=== PATIENT | male | born 1945 | race Caucasian/White ===

== ENCOUNTER → 2021-09-24 | Outpatient (CLI) | payer OTHER ==
[~2021-09-24] MED LIST: Dyazide 37.5-21 EACH PO; Inderal40 MG PO; PROAIR RESPICL90 MCG INH; Pravachol40 MG PO
== END | disposition home or self-care (01) ==
LOC: LAB SHORT 12:32
DX: Z01.812 Encounter for preprocedural laboratory examination (principal); C44.229 Squamous cell carcinoma of skin of left ear and external auricular canal
CPT/HCPCS: 88305

== ENCOUNTER → 2023-05-18 | Outpatient (CLI) | payer OTHER | LOC: LAB 12:00 → PLD 12:00 → LAB SHORT 12:00 | DX: L72.0 Epidermal cyst (principal) | CPT/HCPCS: 88304 ==

== ENCOUNTER → 2023-08-10 | Outpatient (CLI) | payer OTHER ==
[2023-08-10 10:46] LABS: Source, Urine Voided
[2023-08-10 12:06] LABS: Bacteria Rare /hpf; Granular Casts 0-2 /lpf (0); Hyaline Casts 0-2 /lpf (0-2); Squamous Epithelial Cells Rare /hpf (Few); White Blood Cells, Urine 0-2 /hpf (0-5)
== END | disposition home or self-care (01) ==
LOC: LAB SHORT 08:10 → LAB 08:10
PROVIDERS: Family Medicine
DX: R31.0 Gross hematuria (principal)
CPT/HCPCS: 81015; 87086

== ENCOUNTER 2024-03-07 19:10 | Observation (INO) | payer OTHER ==
[~2024-03-07] VITALS: Ht 188 cm; Wt 118.0 kg
[~2024-03-07 19:10] MED LIST changes: +ALBUTEROL SULFATE HF; +CHOLESTYRAMI239.4 G5 PO; +DIPATR PO; +FINA5 PO; +LOSA50 PO; +POTA10T PO; +Potassium Chlo20 ME1 PO; +SILDENAFIL CIT100 MG PO; +VISBIOME 112.51 EACH; +Vancocin HCl125 MG
[2024-03-07 19:35] LABS: BASOPHILS ABSOLUTE AUTO 0.04 K/mm3 (0.00-0.23); BASOPHILS PERCENT AUTO 1 % (0-2); EOSINOPHILS ABSOLUTE AUTO 0.26 K/mm3 (0.00-0.68); EOSINOPHILS PERCENT AUTO 3 % (0-6); Hematocrit 38.5 % (37.0-53.0); IMMATURE GRAN ABSOLUTE AUTO 0.04 K/mm3 (0.00-0.10); IMMATURE GRAN PERCENT AUTO 1 % (0-1); LYMPHOCYTES ABSOLUTE AUTO 0.65 K/mm3 (0.84-5.20); LYMPHOCYTES PERCENT AUTO 8 % (21-46); MONOCYTES ABSOLUTE AUTO 0.91 K/mm3 (0.16-1.47); MONOCYTES PERCENT AUTO 11 % (4-13); Mean Corpuscular HGB 33.1 pg (26.0-34.0); Mean Corpuscular HGB Conc 33.8 g/dL (31.5-36.5); Mean Corpuscular Volume 98 fL (80-100); Mean Platelet Volume 10.7 fL (9.1-12.4); NEUTROPHILS ABSOLUTE AUTO 6.14 K/mm3 (1.96-9.15); NEUTROPHILS PERCENT AUTO 76 % (41-73); Platelet Count 292 K/mm3 (150-400); RDW Coefficient Variation 13.2 % (11.7-14.2); RDW Standard Deviation 47.2 fL (35.1-46.3); Red Blood Cell Count 3.93 M/mm3 (4.30-5.90); White Blood Cell Count 8.04 K/mm3 (4.00-11.30)
[2024-03-07 19:56] LABS: Albumin, Blood 3.2 g/dL (3.4-5.0); Albumin/Globulin Ratio 0.9 (0.8-1.8); Bilirubin, Total 0.4 mg/dL (0.1-1.0); Bun/Creatinine Ratio 17.7 (12.0-20.0); Calcium, Blood 9.4 mg/dL (8.5-10.1); Creatinine, Blood 2.48 mg/dL (0.60-1.20); Globulin, Blood 3.5 g/dL (2.2-4.0); Potassium, Blood 4.2 mmol/L (3.5-5.5); Total Protein, Blood 6.7 g/dL (6.4-8.2)
[2024-03-07] MEDS ORDERED: Ondansetron HCl 2 MG / ML 2ML Vial IV PRN (21:15)
[2024-03-07] MEDS ORDERED: Albuterol 2.5 MG/3 ML VIAL INH PRN (21:20)
[2024-03-07] MEDS ORDERED: Acetaminophen 325 MG TABLET PO PRN (21:20)
[2024-03-07] MEDS ORDERED: Lactated Ringer's 1,000 ML IV SCH (21:20)
[2024-03-07] MEDS ORDERED: Aspirin 81 MG Chew PO ONE (21:20)
[2024-03-07] MEDS ORDERED: NS 1,000 ML IV ONE ×2 (21:21→22:00)
[2024-03-07 22:49] VITALS: BP 131/94
[2024-03-08] MEDS ORDERED: Melatonin 5 MG Tablet PO SCH (01:25)
[2024-03-08 04:31] VITALS: BP 145/84
--- NOTE | 2024-03-08 05:26 | NUR ---
END OF SHIFT SUMMARY NEW ADMIT FOR TIA. PT REPORTS NUMB/TING TO RUE CONTINUES BUT IMPROVED. GRASPS EQUAL. RLE STILL MILD NUMBNESS BUT PT ABLE TO AMBULATE AT BASELINE. HX COPD, NOT ON O2. WEARS CPAP AT NIGHT BUT DID NOT BRING IN. REFUSED TO WEAR HOSPITAL CPAP BUT AGREEABLE TO CONT PULSE OX. SOB WITH EXERTION, PT REPORTS ALSO BASELINE. UP TO BSC INDEPENDENTLY. C/O CONTINUED LOOSE STOOLS FOR THE LAST 2 MONTHS. ACCORDING TO PT, PREVIOUS DX OF CDIFF BUT NOW NEGATIVE IN JANUARY, RESULTS IN CHART. PT STATES HAS ECOLI AND SALMONELLA IN STOOL. NSR ON TELE. ON IVF.
[2024-03-08 06:36] LABS: Hematocrit 34.6 % (37.0-53.0); Hemoglobin 11.5 g/dL (13.5-17.5); Mean Corpuscular HGB 33.4 pg (26.0-34.0); Mean Corpuscular HGB Conc 33.2 g/dL (31.5-36.5); Mean Corpuscular Volume 101 fL (80-100); Platelet Count 265 K/mm3 (150-400); RDW Coefficient Variation 13.4 % (11.7-14.2); RDW Standard Deviation 49.6 fL (35.1-46.3); Red Blood Cell Count 3.44 M/mm3 (4.30-5.90)
[2024-03-08 06:58] LABS: Anion Gap 2 mmol/L (3-11); Blood Urea Nitrogen 38 mg/dL (8-24); Bun/Creatinine Ratio 15.5 (12.0-20.0); CHOL/HDL RATIO 3.4; CO2, Blood 19 mmol/L (21-32); Calcium, Blood 8.5 mg/dL (8.5-10.1); Chloride, Blood 129 mmol/L (98-108); Cholesterol 93 mg/dL (50-200); Creatinine, Blood 2.45 mg/dL (0.60-1.20); Glomerular Filtration Rate 27 (60-); Glucose, Blood 107 mg/dL (70-99); HDL Cholesterol 27 mg/dL (>39); Low Density Lipoprotein Chol 27 mg/dL (0-110); Magnesium, Blood 1.6 mg/dL (1.6-2.4); Potassium, Blood 3.9 mmol/L (3.5-5.5); Sodium, Blood 146 mmol/L (136-145); Triglycerides 194 mg/dL (30-160); Very Low Density Lipoprot Chol 38 mg/dL (6-32)
[2024-03-08 07:13] VITALS: BP 148/88
[2024-03-08] MEDS ORDERED: Propranolol HCL 20 MG TAB PO SCH (07:30)
[2024-03-08] MEDS ORDERED: Finasteride 5 MG Tab PO SCH (09:00)
[2024-03-08] MEDS ORDERED: Aspirin 81 MG Chew PO SCH (09:00)
[2024-03-08] MEDS ORDERED: Atorvastatin 40 MG Tab PO SCH ×2 (09:00→21:00)
[2024-03-08] MEDS ORDERED: Losartan Potassium 50 MG Tab PO SCH ×2 (09:00→21:00)
[2024-03-08] MEDS ORDERED: Heparin Sodium,Porcine 5,000 UNIT/0.5 ML SDV SC SCH (09:00)
--- NOTE | 2024-03-08 09:00 | NUR ---
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
[2024-03-08 15:02] VITALS: BP 132/80
[2024-03-08] MEDS ORDERED: ASPI81CH PO (16:17)
[2024-03-08] MEDS ORDERED: ATOR40TA PO (16:18)
[2024-03-08] MEDS ORDERED: FINA5 PO (16:18)
[2024-03-08] MEDS ORDERED: LOSA50 PO ×2 (16:18)
[2024-03-08] MEDS ORDERED: AMLO5 PO ×2 (16:19)
[2024-03-08] MEDS ORDERED: CLOP75 PO (16:19)
[2024-03-08] MEDS ORDERED: Inderal40 MG PO (16:19)
[2024-03-08] MEDS ORDERED: Chantix1 MG PO (16:20)
[2024-03-08] MEDS ORDERED: MAXZIDE-25 PO ×2 (16:22)
--- NOTE | 2024-03-08 16:41 | NUR ---
pt had echo done, gauri patch placed, discharge instructions give, he verbalized understanding, piv removed intact, new meds faxed to [facility], left via wheelchair with line construction supervisor in attendence with all his belongings.
== END 2024-03-08 16:53 | disposition home or self-care (01) ==
LOC: ER 19:10 → MEDS 19:11
PROVIDERS: Nurse Practitioner Acute Care; Student in an Organized Health Care Education/Training Program; ADMIT Student in an Organized Health Care Education/Training Program
DX: I63.9 Cerebral infarction, unspecified (principal); I12.9 Hypertensive chronic kidney disease with stage 1 through stage 4 chronic kidney disease, or unspecified chronic kidney disease; N18.32 Chronic kidney disease, stage 3b; J44.9 Chronic obstructive pulmonary disease, unspecified; N40.0 Benign prostatic hyperplasia without lower urinary tract symptoms; G47.33 Obstructive sleep apnea (adult) (pediatric); Z88.0 Allergy status to penicillin; Z79.899 Other long term (current) drug therapy
CPT/HCPCS: 36415; 70450; 70496; 70498; 70551; 80048; 80053; 80061; 83036; 83735; 85025; 85027; 93005; 93010; 93246; 93306; 94762; 96360-59; 97161; 97530; 99285-25; A9270; G0378; J7030; J7120; Q9967

== ENCOUNTER 2024-03-15 16:23 | Inpatient (IN) | payer OTHER ==
[~2024-03-15] VITALS: Ht 188 cm; Wt 118.0 kg
[~2024-03-15 16:23] MED LIST changes: +AMLO5 PO; +ASPI81CH PO; +ATOR40TA PO; +CLOP75 PO; +Chantix1 MG PO; +MAXZIDE-25 PO; +NS 1,000 ML IV SCH
[2024-03-15 19:41] LABS: BASOPHILS ABSOLUTE AUTO 0.04 K/mm3 (0.00-0.23); BASOPHILS PERCENT AUTO 0 % (0-2); EOSINOPHILS ABSOLUTE AUTO 0.08 K/mm3 (0.00-0.68); EOSINOPHILS PERCENT AUTO 1 % (0-6); Hemoglobin 11.8 g/dL (13.5-17.5); IMMATURE GRAN ABSOLUTE AUTO 0.04 K/mm3 (0.00-0.10); IMMATURE GRAN PERCENT AUTO 0 % (0-1); LYMPHOCYTES ABSOLUTE AUTO 0.71 K/mm3 (0.84-5.20); LYMPHOCYTES PERCENT AUTO 6 % (21-46); MONOCYTES PERCENT AUTO 16 % (4-13); Mean Corpuscular HGB 32.7 pg (26.0-34.0); Mean Corpuscular HGB Conc 32.8 g/dL (31.5-36.5); Mean Corpuscular Volume 100 fL (80-100); Mean Platelet Volume 10.8 fL (9.1-12.4); NEUTROPHILS ABSOLUTE AUTO 9.31 K/mm3 (1.96-9.15); NEUTROPHILS PERCENT AUTO 77 % (41-73); Platelet Count 352 K/mm3 (150-400); RDW Coefficient Variation 13.4 % (11.7-14.2); RDW Standard Deviation 49.2 fL (35.1-46.3); Red Blood Cell Count 3.61 M/mm3 (4.30-5.90); White Blood Cell Count 12.08 K/mm3 (4.00-11.30)
[2024-03-15 20:00] LABS: Albumin, Blood 2.6 g/dL (3.4-5.0); Albumin/Globulin Ratio 0.7 (0.8-1.8); Bilirubin, Total 0.7 mg/dL (0.1-1.0); Bun/Creatinine Ratio 11.6 (12.0-20.0); Calcium, Blood 8.9 mg/dL (8.5-10.1); Creatinine, Blood 4.93 mg/dL (0.60-1.20); Globulin, Blood 3.9 g/dL (2.2-4.0); Potassium, Blood 4.7 mmol/L (3.5-5.5); Total Protein, Blood 6.5 g/dL (6.4-8.2)
[2024-03-15] MEDS ORDERED: Lactated Ringer's 1,000 ML IV ONE ×4 (20:20→21:32)
[2024-03-15 22:58] LABS: Calcium, Blood 8.8 mg/dL (8.5-10.1); Creatinine, Blood 4.5 mg/dL (0.60-1.20); Potassium, Blood 4.6 mmol/L (3.5-5.5)
[2024-03-15] MEDS ORDERED: Ondansetron HCl 2 MG / ML 2ML Vial IV PRN ×2 (23:25→23:50)
[2024-03-15] MEDS ORDERED: Acetaminophen 325 MG TABLET PO PRN (23:30)
[2024-03-15] MEDS ORDERED: Magnesium Hydroxide Conc 10 ML UDC PO PRN (23:30)
[2024-03-16 00:35] LABS: Phosphorus, Blood 3.7 mg/dL (2.5-4.9)
--- NOTE | 2024-03-16 01:02 | NUR ---
NEW ADMIT. PATIENT ADMITTED TO ROOM 352 FROM THE ER. PATIENT ARRIVED TO ROOM IN WHEELCHAIR WITH ONE PERSON ASSIST. PATIENT ABLE TO SELF TRANSFER SELF FROM CHAIR TO BED. PATIENT ARRIVED WITH 1 PATIENTS BELONGING BAG AND ONE PERSON BAG. THIS RN TO ASSUME CARE.
[2024-03-16 01:07] VITALS: BP 135/79
[2024-03-16] MEDS ORDERED: Ipratropium/Albuterol SulF 2.5-0.5MG/3 ML Amp INH ONE (02:15)
[2024-03-16] MEDS ORDERED: Ipratropium/Albuterol SulF 2.5-0.5MG/3 ML Amp INH PRN (02:20)
[2024-03-16 03:32] VITALS: BP 138/78
--- NOTE | 2024-03-16 05:05 | NUR ---
SHIFT SUMMARY. PATIENT IS A&OX4. PATIENT IS SBA TO THE BATHROOM. PATIENT ON TELE WITH LEADS IN PLACE. PATIENT PLEASANT AND CAAOPERATIVE WITH CARE. PATIENT CALLS APPROPRIATELY AND IS ABLE TO MAKE HIS NEEDS KNOWN. PATIENT SLEPT OFF AND ON T/O NIGHT. PATIENT SITTING ON BEDSIDE WATCHING TV THIS AM. BED IS LOCKED IN THE LOWEST POSITION WITH CALL LIGHT IN REACH. CARE IS ONGOING.
[2024-03-16 06:06] LABS: BASOPHILS ABSOLUTE AUTO 0.04 K/mm3 (0.00-0.23); BASOPHILS PERCENT AUTO 0 % (0-2); EOSINOPHILS ABSOLUTE AUTO 0.11 K/mm3 (0.00-0.68); EOSINOPHILS PERCENT AUTO 1 % (0-6); Hematocrit 34.5 % (37.0-53.0); Hemoglobin 11.3 g/dL (13.5-17.5); IMMATURE GRAN ABSOLUTE AUTO 0.05 K/mm3 (0.00-0.10); IMMATURE GRAN PERCENT AUTO 1 % (0-1); LYMPHOCYTES ABSOLUTE AUTO 0.86 K/mm3 (0.84-5.20); LYMPHOCYTES PERCENT AUTO 8 % (21-46); MONOCYTES ABSOLUTE AUTO 1.65 K/mm3 (0.16-1.47); MONOCYTES PERCENT AUTO 16 % (4-13); Mean Corpuscular HGB 32.4 pg (26.0-34.0); Mean Corpuscular HGB Conc 32.8 g/dL (31.5-36.5); Mean Corpuscular Volume 99 fL (80-100); Mean Platelet Volume 11.1 fL (9.1-12.4); NEUTROPHILS ABSOLUTE AUTO 7.96 K/mm3 (1.96-9.15); NEUTROPHILS PERCENT AUTO 75 % (41-73); Platelet Count 333 K/mm3 (150-400); RDW Coefficient Variation 13.4 % (11.7-14.2); RDW Standard Deviation 48.9 fL (35.1-46.3); Red Blood Cell Count 3.49 M/mm3 (4.30-5.90); White Blood Cell Count 10.67 K/mm3 (4.00-11.30)
[2024-03-16 06:27] LABS: Albumin, Blood 2.4 g/dL (3.4-5.0); Anion Gap 7 mmol/L (3-11); Blood Urea Nitrogen 58 mg/dL (8-24); Bun/Creatinine Ratio 12.1 (12.0-20.0); CO2, Blood 21 mmol/L (21-32); Calcium, Blood 8.5 mg/dL (8.5-10.1); Chloride, Blood 116 mmol/L (98-108); Creatinine, Blood 4.81 mg/dL (0.60-1.20); Glomerular Filtration Rate 12 (60-); Glucose, Blood 107 mg/dL (70-99); Phosphorus, Blood 3.4 mg/dL (2.5-4.9); Potassium, Blood 4.3 mmol/L (3.5-5.5); Sodium, Blood 140 mmol/L (136-145)
[2024-03-16 07:12] VITALS: BP 141/87
[2024-03-16 08:52] LABS: Source, Urine Clean Catch
[2024-03-16] MEDS ORDERED: Enoxaparin 30 MG/0.3 ML SYR SC SCH (09:00)
[2024-03-16] MEDS ORDERED: Heparin Sodium,Porcine 5,000 UNIT/0.5 ML SDV SC SCH (09:00)
[2024-03-16 09:37] LABS: Bilirubin, Urine Neg (Neg); Blood, Urine 1+ (Neg); Glucose Qualitative, Urine Neg (Neg); Ketones, Urine Neg (Neg); Leukocyte Esterase, Urine Neg (Neg); Nitrite, Urine Neg (Neg); Protein, Urine 2+ (Neg); Urobilinogen, Urine NORM (Normal)
[2024-03-16 09:44] LABS: Appearance, Urine Hazy (Clear); Color, Urine Yellow (P-Yellow)
[2024-03-16 09:47] LABS: Red Blood Cells, Urine 0-2 /hpf (0-2); Squamous Epithelial Cells Rare /hpf (Few); White Blood Cells, Urine 0-2 /hpf (0-5)
[2024-03-16 09:48] LABS: Amorphous Light (0-Heavy); Bacteria Rare /hpf; Granular Casts 0-2 /lpf (0); Uric Acid Crystals Many /hpf
[2024-03-16] MEDS ORDERED: NS 1,000 ML IV SCH (12:45)
[2024-03-16] MEDS ORDERED: Propranolol HCL 20 MG TAB PO SCH (14:00)
[2024-03-16 14:37] VITALS: BP 160/87
[2024-03-16 20:10] VITALS: BP 152/87
[2024-03-16] MEDS ORDERED: Atorvastatin 40 MG Tab PO SCH (21:00)
[2024-03-17 03:05] VITALS: BP 151/80
[2024-03-17 06:29] LABS: BASOPHILS ABSOLUTE AUTO 0.05 K/mm3 (0.00-0.23); BASOPHILS PERCENT AUTO 0 % (0-2); EOSINOPHILS ABSOLUTE AUTO 0.14 K/mm3 (0.00-0.68); EOSINOPHILS PERCENT AUTO 1 % (0-6); Hematocrit 34.9 % (37.0-53.0); Hemoglobin 11.6 g/dL (13.5-17.5); IMMATURE GRAN ABSOLUTE AUTO 0.07 K/mm3 (0.00-0.10); IMMATURE GRAN PERCENT AUTO 1 % (0-1); LYMPHOCYTES ABSOLUTE AUTO 0.92 K/mm3 (0.84-5.20); LYMPHOCYTES PERCENT AUTO 8 % (21-46); MONOCYTES ABSOLUTE AUTO 1.79 K/mm3 (0.16-1.47); MONOCYTES PERCENT AUTO 15 % (4-13); Mean Corpuscular HGB 32.7 pg (26.0-34.0); Mean Corpuscular HGB Conc 33.2 g/dL (31.5-36.5); Mean Corpuscular Volume 98 fL (80-100); Mean Platelet Volume 11.2 fL (9.1-12.4); NEUTROPHILS ABSOLUTE AUTO 8.67 K/mm3 (1.96-9.15); NEUTROPHILS PERCENT AUTO 75 % (41-73); Platelet Count 383 K/mm3 (150-400); RDW Coefficient Variation 13.4 % (11.7-14.2); RDW Standard Deviation 47.8 fL (35.1-46.3); Red Blood Cell Count 3.55 M/mm3 (4.30-5.90); White Blood Cell Count 11.64 K/mm3 (4.00-11.30)
--- NOTE | 2024-03-17 06:50 | NUR ---
END OF SHIFT SUMMARY PT A&OX4. SOB ON EXERTION AT BASELINE, NOT ON O2. AGREEABLE TO WEARING CPAP, ONLY WORE FOR AROUND 2 HOURS. REMAINS ON IVF. VOIDING IN URINAL. BLADDER SCAN COMPLETE X1 PER ORDER, 106ML PVR. PT HAD LARGE BM THIS AM, SOME INCONTINENCE TO DUE DIFFICULTY GETTING TO BATHROOM IN TIME.
[2024-03-17 06:53] LABS: Alanine Aminotransfer (ALT/SGP 13 U/L (12-78); Albumin, Blood 2.5 g/dL (3.4-5.0); Albumin/Globulin Ratio 0.6 (0.8-1.8); Alk Phos 106 U/L (50-136); Anion Gap 9 mmol/L (3-11); Aspartate Aminotrans (AST/SGOT 13 U/L (12-37); Bilirubin, Total 0.5 mg/dL (0.1-1.0); Blood Urea Nitrogen 52 mg/dL (8-24); Bun/Creatinine Ratio 12.7 (12.0-20.0); CO2, Blood 19 mmol/L (21-32); Calcium, Blood 9.4 mg/dL (8.5-10.1); Chloride, Blood 120 mmol/L (98-108); Creatinine, Blood 4.09 mg/dL (0.60-1.20); Glomerular Filtration Rate 14 (60-); Glucose, Blood 107 mg/dL (70-99); Phosphorus, Blood 3.6 mg/dL (2.5-4.9); Potassium, Blood 4.7 mmol/L (3.5-5.5); Sodium, Blood 143 mmol/L (136-145); Total Protein, Blood 6.5 g/dL (6.4-8.2)
[2024-03-17 07:32] VITALS: BP 145/77
[2024-03-17] MEDS ORDERED: NS 1,000 ML IV SCH (08:15)
[2024-03-17] MEDS ORDERED: Aspirin 81 MG Chew PO SCH (09:00)
[2024-03-17] MEDS ORDERED: Finasteride 5 MG Tab PO SCH (09:00)
[2024-03-17] MEDS ORDERED: Bumetanide 1 MG Tab PO SCH (09:00)
[2024-03-17] MEDS ORDERED: AmLODIPine Besylate 5 MG Tab PO SCH (09:00)
[2024-03-17] MEDS ORDERED: Sodium Bicarbonate 650 MG Tab PO SCH (09:00)
[2024-03-17] MEDS ORDERED: Clopidogrel Bisulfate 75 MG Tab PO SCH (09:00)
[2024-03-17 15:19] VITALS: BP 136/80
[2024-03-17 19:00] VITALS: BP 162/92
--- NOTE | 2024-03-17 19:33 | NUR ---
report received, pt sitting up in bed anxious to go home but MD is wanting him to stay for observation. new orders were imputted. pt has had a difficult time urinating in the urinal so the floor has been needing to be mopped. possible unaccurate 24 hour urine collection. enc pt to continue collection. new iv started to right fa. pt so far independant
--- NOTE | 2024-03-17 20:47 | NUR ---
NOTIFIED JEREMIAH BOWERS THAT PT REFUSING IVF. ALSO NOTIFIED OF PT HR RUNNING 45-77 PER TELE. ORDERS RECD FOR HOLD PARAMATERS FOR PROPRANOLOL, UPDATED EMAR.
--- NOTE | 2024-03-18 00:45 | NUR ---
[employer] REPORTS SB 38 FOR A FEW SECONDS AND BACK UP TO HR 45-51. PATIENT AWOKE WHEN ENTERING ROOM. WCTM.
[2024-03-18 03:02] VITALS: BP 148/87
[2024-03-18 05:53] LABS: BASOPHILS ABSOLUTE AUTO 0.05 K/mm3 (0.00-0.23); BASOPHILS PERCENT AUTO 1 % (0-2); EOSINOPHILS ABSOLUTE AUTO 0.24 K/mm3 (0.00-0.68); EOSINOPHILS PERCENT AUTO 3 % (0-6); Hematocrit 31.7 % (37.0-53.0); Hemoglobin 10.3 g/dL (13.5-17.5); IMMATURE GRAN ABSOLUTE AUTO 0.04 K/mm3 (0.00-0.10); IMMATURE GRAN PERCENT AUTO 1 % (0-1); LYMPHOCYTES ABSOLUTE AUTO 0.89 K/mm3 (0.84-5.20); LYMPHOCYTES PERCENT AUTO 11 % (21-46); MONOCYTES ABSOLUTE AUTO 1.35 K/mm3 (0.16-1.47); MONOCYTES PERCENT AUTO 17 % (4-13); Mean Corpuscular HGB 32.7 pg (26.0-34.0); Mean Corpuscular HGB Conc 32.5 g/dL (31.5-36.5); Mean Corpuscular Volume 101 fL (80-100); Mean Platelet Volume 11.1 fL (9.1-12.4); NEUTROPHILS ABSOLUTE AUTO 5.56 K/mm3 (1.96-9.15); NEUTROPHILS PERCENT AUTO 68 % (41-73); Platelet Count 327 K/mm3 (150-400); RDW Coefficient Variation 13.4 % (11.7-14.2); RDW Standard Deviation 49.4 fL (35.1-46.3); Red Blood Cell Count 3.15 M/mm3 (4.30-5.90); White Blood Cell Count 8.13 K/mm3 (4.00-11.30)
--- NOTE | 2024-03-18 05:59 | NUR ---
END OF SHIFT SUMMARY PT A&OX4. PT FREQUENTLY AWAKE DURING NIGHT, ASKING FOR SNACKS, AMBULATING IN [place], STATING UNABLE TO SLEEP/RESTLESS BUT DECLINED INTERVENTION. PT C/O WAKING UP AT TIMES THINKING HE WAS AT HOME AND STARTING TO "WALK TO THE KITCHEN" BUT QUICKLY REALIZING HE WAS IN THE HOSPITAL ONCE IN THE [place]. PT SOB WITH EXERTION, O2 SAT 92 ON RA. DECLINED O2 OR CPAP. CONTINUES WITH 24 HOUR URINE COLLECTION, NO EPISODES OF INCONTINENCE. HR LOW OF 37 BRIEFLY PER TUBING MILL OPERATOR. PT SLEEPING AND ASYMPTOMATIC, STATING "THATS BEEN THAT WAY ALL MY LIFE."
[2024-03-18 06:26] LABS: Albumin, Blood 2.3 g/dL (3.4-5.0); Anion Gap 7 mmol/L (3-11); Blood Urea Nitrogen 49 mg/dL (8-24); Bun/Creatinine Ratio 15.1 (12.0-20.0); CO2, Blood 23 mmol/L (21-32); Calcium, Blood 9.1 mg/dL (8.5-10.1); Chloride, Blood 118 mmol/L (98-108); Creatinine, Blood 3.24 mg/dL (0.60-1.20); Glomerular Filtration Rate 19 (60-); Glucose, Blood 107 mg/dL (70-99); Magnesium, Blood 1.9 mg/dL (1.6-2.4); Phosphorus, Blood 3.6 mg/dL (2.5-4.9); Potassium, Blood 4.3 mmol/L (3.5-5.5); Sodium, Blood 144 mmol/L (136-145); Uric Acid, Blood 8.9 mg/dL (3.5-7.2)
[2024-03-18 07:04] VITALS: BP 159/89
[2024-03-18] MEDS ORDERED: BUME2 PO ×2 (10:02)
[2024-03-18] MEDS ORDERED: SODBIC650 PO ×2 (10:03)
--- NOTE | 2024-03-18 11:47 | NUR ---
REPORT RECEIVED VERIFIED PT VERY ANXIOUS TO GO HOME. DR MALAVE IN TO SEE PT AND SAID HE WAS FREE TO GO ONCE THE OTHER DR SAW HIM. PT REMOVED TELE AND WAS READY TO LEAVE. I ENC PT TO STAY AND WAIT TO START REMOVING EVERYTHING BUT IT WAS TOO LATE. DR DELACRUZ SAW PT A DISCHARGE ORDERS WERE GIVEN. DC ORDERS EXPLAINED TO PT AND IV DCED. PT DID NOT WANT TO WAIT IN ROOM BUT WANTED TO BE LEFT OUTSIDE ON BENCH TO WAIT FOR RIDE. I ENC PT TO RETURN TO ER IS SYMPTOMS CAME BACK AND PT VERBALIZED UNDERSTANDING.
[2024-03-20 14:33] LABS: GBM, IGG MULTIPLEX BEAD ASSAY 0 AU/mL (0-19); MYELOPEROXIDASE (MPO) AB,IGG 0 AU/mL (0-19); SERINE PROTEINASE 3 PR3 AB,IGG 4 AU/mL (0-19)
[2024-03-21 08:50] LABS: ANA PATTERN Speckled; ANTINUCLEAR AB (ANA),HEP-2,IGG Detected (<1:80)
[2024-03-22 23:58] LABS: ALBUMIN %,URINE 62.8 %; ALPHA-1 %,URINE 3.1 %; ALPHA-2 %,URINE 7.3 %; BETA GLOBULIN %,URINE 12.9 %; GAMMA GLOBULIN %,URINE 13.9 %; HOURS COLLECTED Random hr; TOTAL VOLUME Random mL
== END 2024-03-18 10:56 | disposition home or self-care (01) | DRG 683 ==
LOC: ER 16:23 → MEDS 16:24 → ENPENDDIS 03-18 09:54 → MEDS 03-18 10:56
PROVIDERS: Emergency Medicine; Family Medicine; Internal Medicine; Internal Medicine Nephrology; ADMIT Student in an Organized Health Care Education/Training Program
DX: N17.0 Acute kidney failure with tubular necrosis (principal); E87.20 Acidosis, unspecified; I13.0 Hypertensive heart and chronic kidney disease with heart failure and stage 1 through stage 4 chronic kidney disease, or unspecified chronic kidney disease; J44.9 Chronic obstructive pulmonary disease, unspecified; E87.6 Hypokalemia; G47.33 Obstructive sleep apnea (adult) (pediatric); E66.9 Obesity, unspecified; H91.90 Unspecified hearing loss, unspecified ear; I25.10 Atherosclerotic heart disease of native coronary artery without angina pectoris; N40.0 Benign prostatic hyperplasia without lower urinary tract symptoms; E88.09 Other disorders of plasma-protein metabolism, not elsewhere classified; E78.5 Hyperlipidemia, unspecified; E86.0 Dehydration; F17.210 Nicotine dependence, cigarettes, uncomplicated; N28.1 Cyst of kidney, acquired; Z88.0 Allergy status to penicillin; Z86.73 Personal history of transient ischemic attack (TIA), and cerebral infarction without residual deficits; Z79.02 Long term (current) use of antithrombotics/antiplatelets; Z79.899 Other long term (current) drug therapy; Z79.82 Long term (current) use of aspirin; K59.00 Constipation, unspecified; Z68.32 Body mass index [BMI] 32.0-32.9, adult; N18.32 Chronic kidney disease, stage 3b
CPT/HCPCS: 36415; 71046; 76770; 80048; 80053; 80069; 81001; 82550; 82570; 83516; 83735; 83880; 84100; 84156; 84166; 84300; 84540; 84550; 85025; 86039; 86334; 86335; 92610; 93005; 93010; 94640; 94760; 96360; 96361; 96372; 97161; 97530; 99284-25; A9270; G0378; J1644; J7030; J7120

== ENCOUNTER → 2024-04-16 | Outpatient (CLI) | payer OTHER ==
[~2024-04-16] MED LIST changes: +BUME2 PO; -NS 1,000 ML IV SCH; +SODBIC650 PO
[2024-04-16 13:59] LABS: Protein, Urine Quantitative 18.1 mg/dL (0.0-11.9)
[2024-04-16 14:00] LABS: Creatinine Urine 80.5 mg/dL (27.00-270.00); Microalbumin, Urine Quant. 40.6 mg/L (0.000-20.000)
== END | disposition home or self-care (01) ==
LOC: LAB 06:00 → LAB SHORT 06:00
PROVIDERS: Internal Medicine Nephrology
DX: N18.30 Chronic kidney disease, stage 3 unspecified (principal); D63.1 Anemia in chronic kidney disease; N25.81 Secondary hyperparathyroidism of renal origin; E55.9 Vitamin D deficiency, unspecified; E78.00 Pure hypercholesterolemia, unspecified; R76.9 Abnormal immunological finding in serum, unspecified; R94.5 Abnormal results of liver function studies
CPT/HCPCS: 81050; 82043; 82570; 84156